=== PATIENT | female | born 1955 | race Caucasian/White ===

== ENCOUNTER 2017-10-29 13:49 | Inpatient (IN) | payer OTHER ==
[2017-10-29 15:06] LABS: POC GLUCOSE 214 mg/dL (70-99)
[2017-10-29 15:13] LABS: ADD MAN DIFF? NO
[2017-10-29] MEDS: PANTOPRAZOLE IV PUSH 40 MG VIAL. IVP (15:15)
[2017-10-29] MEDS: ONDANSETRON PF 4 MG/2 ML VIAL. IV (15:15)
[2017-10-29] MEDS ORDERED: 0.9 % SODIUM CHLORIDE 10 ML DISP.SYRIN. IV ×2 (15:15)
[2017-10-29] MEDS: IV NORMAL SALINE 1000ML BAG 1,000 ML IV ×2 (15:16→21:05)
[2017-10-29 15:20] LABS: BASO # 0.1 x10^3/uL (0.0-0.2); BASO % 1 % (0-3); EOS % 0 % (0-3); HEMATOCRIT 47.4 % (36.0-47.0); HEMOGLOBIN 16.1 g/dL (12.0-15.5); LYMPH # 0.8 x10^3/uL (1.0-4.8); LYMPH % 8 % (24-48); MEAN CORPUSCULAR HEMOGLOBIN 31 pg (25-35); MEAN CORPUSCULAR HGB CONC 34 g/dL (31-37); MEAN CORPUSCULAR VOLUME 92 fL (79-100); MONO # 0.9 x10^3/uL (0.0-1.1); MONO % 9 % (0-9); NEUT # 8.4 x10^3uL (1.8-7.7); NEUT % 82 % (31-73); PLATELET COUNT 101 x10^3/uL (140-400); RED BLOOD COUNT 5.16 x10^6/uL (3.50-5.40); RED CELL DISTRIBUTION WIDTH 12.1 % (11.5-14.5); WHITE BLOOD COUNT 10.2 x10^3/uL (4.0-11.0)
[2017-10-29 15:23] LABS: GASTRIC OB PAT POSITIVE (NEG); NEG OBC GOB NEG; POS OBC GOB POS
[2017-10-29 15:32] LABS: ANION GAP 11 (6-14); BLOOD UREA NITROGEN 17 mg/dL (7-20); CALCIUM 8.6 mg/dL (8.5-10.1); CARBON DIOXIDE 29 mmol/L (21-32); CHLORIDE 95 mmol/L (98-107); CREATININE 0.8 mg/dL (0.6-1.0); GFR 72.4; GLUCOSE 234 mg/dL (70-99); POTASSIUM 3.8 mmol/L (3.5-5.1); SODIUM 135 mmol/L (136-145)
[2017-10-29 15:38] LABS: ALBUMIN 3.3 g/dL (3.4-5.0); ALK PHOS 56 U/L (46-116); ALT (SGPT) 22 U/L (14-59); AST (SGOT) 26 U/L (15-37); DIRECT BILIRUBIN 0.1 mg/dL (0.0-0.2); FECAL OB PT NEGATIVE (NEG); LIPASE 114 U/L (73-393); NEG OBC FOB NEG; POS OBC FOB POS; TOTAL BILIRUBIN 0.3 mg/dL (0.2-1.0); TOTAL PROTEIN 7.6 g/dL (6.4-8.2)
[2017-10-29 15:39] LABS: TROPONINI < 0.017 ng/mL (0.000-0.055)
[2017-10-29] MEDS: fentaNYL PF VIAL 100 MCG/2 ML VIAL IV ×2 (15:40→18:54)
[2017-10-29 15:45] LABS: CKMB MASS 0.5 ng/mL (0.0-3.6); CREATINE KINASE 50 U/L (26-192)
[2017-10-29] MEDS ORDERED: CONTRAST GIVEN MC (16:00)
[2017-10-29] MEDS ORDERED: IV NORMAL SALINE 1000ML BAG 1,000 ML IV (16:00)
[2017-10-29] MEDS: IOHEXOL 300 MG/ML 100ML VIAL. IV (16:04)
[2017-10-29 16:28] LABS: INFLUENZA A PATIENT NEGATIVE (NEGATIVE); INFLUENZA B PATIENT NEGATIVE (NEGATIVE); OBC FLU VALID
[2017-10-29 17:49] LABS: BILIRUBIN,URINE NEGATIVE (NEG); CLARITY,URINE CLOUDY; COLOR,URINE YELLOW; GLUCOSE,URINE 250 mg/dL (NEG); NITRITE,URINE NEGATIVE (NEG); PH,URINE 7.5; PROTEIN,URINE NEGATIVE (NEG-TRACE); UROBILINOGEN,URINE 0.2 mg/dL (0.2 mg/dL)
[2017-10-29 17:54] LABS: BACTERIA,URINE MANY /HPF (0-FEW); SQUAMOUS EPITHELIAL CELL,UR MANY /LPF; WBC,URINE 20-40 /HPF (0-4)
[2017-10-29] MEDS: IV NORMAL SALINE 500ML BAG 500 ML IV (18:26)
[2017-10-29 20:40] LABS: POC GLUCOSE 208 mg/dL (70-99)
[2017-10-30] MEDS: ONDANSETRON PF 4 MG/2 ML VIAL. IV (00:27)
[2017-10-30] MEDS: fentaNYL PF VIAL 100 MCG/2 ML VIAL IV (01:42)
[2017-10-30] MEDS: IV NORMAL SALINE 1000ML BAG 1,000 ML IV ×6 (04:57→12:00)
[2017-10-30 07:42] LABS: ADD MAN DIFF? NO
[2017-10-30 07:53] LABS: BASO % 0 % (0-3); EOS % 0 % (0-3); HEMATOCRIT 42.5 % (36.0-47.0); HEMOGLOBIN 14.5 g/dL (12.0-15.5); LYMPH # 0.4 x10^3/uL (1.0-4.8); LYMPH % 18 % (24-48); MEAN CORPUSCULAR HEMOGLOBIN 32 pg (25-35); MEAN CORPUSCULAR HGB CONC 34 g/dL (31-37); MEAN CORPUSCULAR VOLUME 92 fL (79-100); MONO # 0.2 x10^3/uL (0.0-1.1); MONO % 8 % (0-9); NEUT # 1.6 x10^3uL (1.8-7.7); NEUT % 74 % (31-73); PLATELET COUNT 72 x10^3/uL (140-400); RED BLOOD COUNT 4.61 x10^6/uL (3.50-5.40); RED CELL DISTRIBUTION WIDTH 12.1 % (11.5-14.5); WHITE BLOOD COUNT 2.1 x10^3/uL (4.0-11.0)
[2017-10-30 08:06] LABS: POC GLUCOSE 216 mg/dL (70-99)
[2017-10-30] MEDS ORDERED: PIPERACILLIN/TAZOBACTAM 3.375 GM in IV DEXTROSE 5% 50 ML IV ×2 (08:49→12:00)
[2017-10-30] MEDS ORDERED: NOREPINEPHRIN PREMIX 250 ML IV ×2 (08:50→11:45)
[2017-10-30] MEDS ORDERED: PROPOFOL 100 ML IV ×2 (08:50→09:15)
[2017-10-30] MEDS ORDERED: SUCCINYLCHOLINE 200 MG/10 ML VIAL. ×2 (08:51→09:00)
[2017-10-30] MEDS ORDERED: NOREPINEPHRINE PREMIX 8 MG/250 ML BAG. IV (09:00)
[2017-10-30] MEDS ORDERED: MIDAZOLAM HCL/PF 5 MG/5 ML VIAL. ×2 (09:00→09:01)
[2017-10-30] MEDS ORDERED: PROPOFOL 10 MG/ML (100ML) VIAL. IV (09:00)
[2017-10-30] MEDS ORDERED: MIDAZOLAM 100MG/100ML PREMIX 100 ML IV (09:15)
[2017-10-30] MEDS ORDERED: fentaNYL PF VIAL 100 MCG/2 ML VIAL IV ×2 (09:15)
[2017-10-30 09:33] LABS: ADD MAN DIFF? NO
[2017-10-30] MEDS ORDERED: ADENOSINE 6 MG/2 ML VIAL. IV ×2 (09:34→12:00)
[2017-10-30 09:36] LABS: BASO % 0 % (0-3); EOS % 0 % (0-3); HEMATOCRIT 38.5 % (36.0-47.0); HEMOGLOBIN 13.1 g/dL (12.0-15.5); LYMPH # 0.9 x10^3/uL (1.0-4.8); LYMPH % 21 % (24-48); MEAN CORPUSCULAR HEMOGLOBIN 31 pg (25-35); MEAN CORPUSCULAR HGB CONC 34 g/dL (31-37); MEAN CORPUSCULAR VOLUME 90 fL (79-100); MONO # 0.4 x10^3/uL (0.0-1.1); MONO % 9 % (0-9); NEUT % 70 % (31-73); PLATELET COUNT 85 x10^3/uL (140-400); RED BLOOD COUNT 4.28 x10^6/uL (3.50-5.40); RED CELL DISTRIBUTION WIDTH 11.8 % (11.5-14.5); WHITE BLOOD COUNT 4.3 x10^3/uL (4.0-11.0)
[2017-10-30 09:46] LABS: INR 1.3 (0.8-1.1); PROTHROMBIN TIME PATIENT 15.3 SEC (11.7-14.0)
[2017-10-30 09:51] LABS: BASE EXCESS ABG -6 mmol/L (-3-3); HCO3 ABG 19 mmol/L (21-28); PCO2 ABG 37 mmHg (35-46); PH ABG 7.34 (7.35-7.45); PO2 ABG 227 mmHg (65-108); SAT O2 ABG 99 % (92-99)
[2017-10-30 09:53] LABS: FIO2 ABG 100
[2017-10-30 09:57] LABS: ANION GAP 13 (6-14); BLOOD UREA NITROGEN 18 mg/dL (7-20); CARBON DIOXIDE 22 mmol/L (21-32); CHLORIDE 106 mmol/L (98-107); CREATININE 1.5 mg/dL (0.6-1.0); GFR 35.1; GLUCOSE 219 mg/dL (70-99); SODIUM 141 mmol/L (136-145)
[2017-10-30 10:05] LABS: POTASSIUM 2.9 mmol/L (3.5-5.1)
[2017-10-30 10:08] LABS: LACTIC ACID 3.5 mmol/L (0.4-2.0)
[2017-10-30] MEDS ORDERED: PANTOPRAZOLE IV PUSH 40 MG VIAL. IVP (10:30)
[2017-10-30 10:33] LABS: HEMATOCRIT 36.6 % (36.0-47.0); HEMOGLOBIN 12.5 g/dL (12.0-15.5); MEAN CORPUSCULAR HEMOGLOBIN 31 pg (25-35); MEAN CORPUSCULAR HGB CONC 34 g/dL (31-37); MEAN CORPUSCULAR VOLUME 92 fL (79-100); PLATELET COUNT 83 x10^3/uL (140-400); RED CELL DISTRIBUTION WIDTH 11.9 % (11.5-14.5); WHITE BLOOD COUNT 3.9 x10^3/uL (4.0-11.0)
[2017-10-30 10:45] LABS: INR 1.4 (0.8-1.1); PROTHROMBIN TIME PATIENT 15.9 SEC (11.7-14.0)
[2017-10-30 10:56] LABS: TROPONINI 0.212 ng/mL (0.000-0.055)
[2017-10-30 10:59] LABS: ALBUMIN/GLOBULIN RATIO 0.9 (1.0-1.7); ALK PHOS 34 U/L (46-116); ALT (SGPT) 8 U/L (14-59); ANION GAP 12 (6-14); AST (SGOT) 20 U/L (15-37); BLOOD UREA NITROGEN 18 mg/dL (7-20); BUN/CREATININE RATIO 12 (6-20); CALCIUM 6.1 mg/dL (8.5-10.1); CARBON DIOXIDE 25 mmol/L (21-32); CHLORIDE 109 mmol/L (98-107); CREATININE 1.5 mg/dL (0.6-1.0); GFR 35.1; GLUCOSE 191 mg/dL (70-99); MAGNESIUM 1.3 mg/dL (1.8-2.4); PHOSPHORUS 2.3 mg/dL (2.6-4.7); SODIUM 146 mmol/L (136-145); TOTAL BILIRUBIN 0.4 mg/dL (0.2-1.0); TOTAL PROTEIN 4.3 g/dL (6.4-8.2)
[2017-10-30] MEDS ORDERED: AMIODARONE 900 MG in IV DEXTROSE 5% 500 ML IV (11:00)
[2017-10-30 11:03] LABS: POTASSIUM 2.8 mmol/L (3.5-5.1)
[2017-10-30 11:07] LABS: LACTIC ACID 4.7 mmol/L (0.4-2.0)
[2017-10-30 11:13] LABS: IMMEDIATE SPIN CROSSMATCH 1 4
[2017-10-30] MEDS ORDERED: MAGNESIUM SULFATE 2GM 50 ML IV (11:30)
[2017-10-30 11:36] LABS: BILIRUBIN,URINE NEGATIVE (NEG); CLARITY,URINE CLOUDY; COLOR,URINE YELLOW; GLUCOSE,URINE NEGATIVE (NEG); NITRITE,URINE NEGATIVE (NEG); PH,URINE 5.5; PROTEIN,URINE 30 mg/dL (NEG-TRACE); UROBILINOGEN,URINE 0.2 mg/dL (0.2 mg/dL)
[2017-10-30] MEDS: PHENYLEPHRINE INJ 80 MG in IV NORMAL SALINE 250ML 250 ML IV (11:41)
[2017-10-30] MEDS: VASOPRESSIN 40 UNIT in IV NORMAL SALINE 100ML 100 ML IV (11:41)
[2017-10-30] MEDS: DIGOXIN IV 500 MCG/2 ML AMPUL. IV (11:42)
[2017-10-30 11:43] LABS: RBC,URINE OCC /HPF (0-2)
[2017-10-30] MEDS: POTASSIUM ACETATE IV ×2 (11:43→12:00)
[2017-10-30] MEDS: NORMAL SALINE IV ×2 (11:43→12:00)
[2017-10-30] MEDS: MIDAZOLAM 100MG/100ML PREMIX 100 ML IV (11:43)
[2017-10-30 11:44] LABS: BACTERIA,URINE MANY /HPF (0-FEW)
[2017-10-30] MEDS: MAGNESIUM SULFATE 2GM 50 ML IV (11:45)
[2017-10-30] MEDS: PANTOPRAZOLE IV PUSH 40 MG VIAL. IVP (11:45)
[2017-10-30] MEDS: PIPERACILLIN/TAZO IV Push 3.375 GM VIAL. IVP (11:51)
[2017-10-30] MEDS: ADENOSINE 6 MG/2 ML VIAL. IV ×3 (11:57→11:58)
[2017-10-30] MEDS: SODIUM BICARB ADULT 8.4% 50 MEQ/50 ML DISP.SYRIN. IV (11:58)
[2017-10-30] MEDS ORDERED: EPINEPHrine SYRINGE 1 MG/10 ML SYRINGE (12:00)
[2017-10-30] MEDS ORDERED: SODIUM BICARB ADULT 8.4% 50 MEQ/50 ML DISP.SYRIN. (12:00)
[2017-10-30] MEDS ORDERED: EPINEPHrine VIAL 8 MG in IV NORMAL SALINE 250ML 250 ML IV (12:15)
[2017-10-30] MEDS ORDERED: VANCOMYCIN PER PHARMACY MC (13:00)
[2017-10-30] MEDS ORDERED: EPINEPHrine 1 MG/ML VIAL ET (13:00)
[2017-10-30] MEDS ORDERED: VANCOMYCIN 1.5 GM in IV DEXTROSE 5 %-0.2 % NACL 500 ML IV (13:30)
[2017-10-30 20:10] LABS: HEMOGLOBIN A1C 6.6 % (4.8-5.6)
[2017-10-30] MEDS ORDERED: CHLORHEXIDINE 0.12% 15 ML MOUTHWASH. MM (21:00)
[2017-10-30] MEDS ORDERED: INSULIN DETEMIR 300 UNITS/3 ML INSULN.PEN. SQ (21:00)
== END 2017-10-30 13:30 | disposition expired | DRG 871 ==
LOC: 1 WEST ICU 10-30 09:00 → ER 13:49 → 5 NORTH 16:24
PROC: 5A1935Z Respiratory Ventilation, Less than 24 Consecutive Hours (ICD-10-PCS; principal; 2017-10-30)
PROC: 5A2204Z Restoration of Cardiac Rhythm, Single (ICD-10-PCS; 2017-10-30)
PROC: 04H033Z Insertion of Infusion Device into Abdominal Aorta, Percutaneous Approach (ICD-10-PCS; 2017-10-30)
PROC: 05HM33Z Insertion of Infusion Device into Right Internal Jugular Vein, Percutaneous Approach (ICD-10-PCS; 2017-10-30)
PROC: 02H633Z Insertion of Infusion Device into Right Atrium, Percutaneous Approach (ICD-10-PCS; 2017-10-30)
PROC: 0BH17EZ Insertion of Endotracheal Airway into Trachea, Via Natural or Artificial Opening (ICD-10-PCS; 2017-10-30)
PROC: 30233N1 Transfusion of Nonautologous Red Blood Cells into Peripheral Vein, Percutaneous Approach (ICD-10-PCS; 2017-10-30)
DX: A41.9 Sepsis, unspecified organism (principal); D65 Disseminated intravascular coagulation [defibrination syndrome]; J96.01 Acute respiratory failure with hypoxia; J18.9 Pneumonia, unspecified organism; R57.1 Hypovolemic shock; E10.621 Type 1 diabetes mellitus with foot ulcer; R65.21 Severe sepsis with septic shock; I47.1 Supraventricular tachycardia; I48.91 Unspecified atrial fibrillation; K56.7 Ileus, unspecified; N39.0 Urinary tract infection, site not specified; K92.2 Gastrointestinal hemorrhage, unspecified; E10.65 Type 1 diabetes mellitus with hyperglycemia; E83.42 Hypomagnesemia; E86.0 Dehydration; D64.9 Anemia, unspecified; E87.6 Hypokalemia; F17.210 Nicotine dependence, cigarettes, uncomplicated; I10 Essential (primary) hypertension; L97.509 Non-pressure chronic ulcer of other part of unspecified foot with unspecified severity; Z79.4 Long term (current) use of insulin; Z90.710 Acquired absence of both cervix and uterus; Z91.19 Patient's noncompliance with other medical treatment and regimen
CPT/HCPCS: 36415; 36600; 71045; 74177; 80048; 80053; 80076; 81001; 82271; 82274; 82553; 82805; 82962; 83036; 83605; 83690; 83735; 84100; 84484; 85025; 85027; 85610; 86850; 86900; 86901; 86920; 87086; 87804; 87804-59; 93005; 94002; 96361; 96374; 96375; 96376; 99285-25; C9113; J0153; J0171; J0330; J1160; J1815; J2250; J2405; J2543; J2704; J3010; J3490; J7030; J7040; J7050; J7060; P9016; Q9967